=== PATIENT | female | born 1990 | race Asian ===

== ENCOUNTER 2018-09-25 11:46 | Emergency (ER) | payer OTHER ==
[2018-09-25] MEDS ORDERED: Dexamethasone IV* 4 MG/ML 1 ML (4 MG) IM ONE (14:34)
[2018-09-25] MEDS ORDERED: oxyCODONE/Acetamin 5/325 MG* TAB PO ONE (14:35)
[2018-09-25] MEDS ORDERED: Ketorolac INJ* 60 MG/2 ML VIAL IM ONE (14:35)
--- NOTE | 2018-09-25 15:37 | ED ---
Back Pain - HPI Summary HPI Summary: A 27 y/o female presents to [facility] with a chief complaint of right sided back pain today. She went to [facility] and was referred to the ED. She claims that she thinks she has a herniated disk or her sciatic nerve is swollen as touching her right side is painful. She denies fevers, chills, N/V or a Hx of kidney stones. At triage she rated her pain as an 8/10 in severity. She denies any recent falls or urinary or bowel incontinence. Her LNMP was 09/24/18. She denies the possibility of . She says that when she was 15 and 26 years old she had similar symptoms. - History of Current Complaint Chief Complaint: EDBackInjuryCecilio Stated Complaint: "BACK PAIN" PER PT Hx Obtained From: Patient Onset/Duration: Sudden Onset, Lasting Hours, Still Present Onset/Duration: Started Hours Ago, Still Present Timing: Constant Back Pain Location: Is Diffuse Severity Initially: Severe Severity Currently: Severe Pain Intensity: 8 Pain Scale Used: 0-10 Numeric Character: Unable to Describe Aggravating Symptom(s): Nothing Alleviating Symptom(s): Nothing Associated Signs And Symptoms: Negative: Fever, Bladder Incontinence, Bowel Incontinence - Allergies/Home Medications Allergies/Adverse Reactions: Allergies Allergy/AdvReac Type Severity Reaction Status Date / Time No Known Allergies Allergy Verified 09/21/18 15:02 PMH/Surg Hx/FS Hx/Imm Hx Endocrine/Hematology History: Denies: Hx Diabetes Cardiovascular History: Denies: Hx Hypertension, Hx Pacemaker/ICD History: Denies: Hx Renal Disease Sensory History: Denies: Hx Hearing Aid Psychiatric History: Denies: Hx Panic Disorder Infectious Disease History: No Infectious Disease History: Denies: Traveled Outside the [place] in Last 30 Days - Family History Known Family History: Negative: Blood Disorder - Social History Alcohol Use: Occasionally Substance Use Type: Reports: None Smoking Status (MU): Never Smoked Tobacco Review of Systems Negative: Fever, Chills Negative: Vomiting, Nausea Negative: incontinence Positive: Myalgia - back pain All Other Systems Reviewed And Are Negative: Yes Physical Exam - Summary Physical Exam Summary: GENERAL: Patient is a well-developed and nourished F who is lying comfortable in the stretcher. Patient is not in any acute respiratory distress. HEAD AND FACE: Normocephalic EYES: PERRLA, EOMI x 2. EARS: Hearing grossly intact. MOUTH: Oropharynx within normal limits. NECK: Supple, trachea is midline, no adenopathy, no JVD, no carotid bruit. CHEST: Symmetric, no tenderness at palpation LUNGS: Clear to auscultation bilaterally. No wheezing or crackles. CVS: Regular rate and rhythm, S1 and S2 present, no murmurs or gallops appreciated. ABDOMEN: Soft, non-tender. Bowel sounds are normal. No abdominal abnormal pulsations. EXTREMITIES: Straight leg raise positive on right side, tender along lumbar spine, no edema, no cyanosis or clubbing. NEURO: Alert and oriented x 3. No acute neurological deficits. Speech is normal and follows commands. SKIN: Dry and warm Triage Information Reviewed: Yes Vital Signs On Initial Exam: Initial Vitals Temp Pulse Resp BP Pulse Ox 97.2 F 98 18 124/88 98 09/25/18 11:59 09/25/18 11:59 09/25/18 11:59 09/25/18 11:59 09/25/18 11:59 Vital Signs Reviewed: Yes Diagnostics - Vital Signs Vital Signs Temp Pulse Resp BP Pulse Ox 09/25/18 15:00 18 09/25/18 11:59 97.2 F 98 18 124/88 98 - Laboratory Lab Statement: Any lab studies that have been ordered have been reviewed, and results considered in the medical decision making process. - CT lumbar spine CT Interpretation Completed By: Radiologist Summary of CT Findings: At L5-S1 there is suggestion of a right paracentral disc protrusion which. appears to abut the right descending S1 nerve root. ED physician has reviewed this imaging report. Re-Evaluation - Re-Evaluation First Eval Re-Evaluation Time: 16:10 Change: Improved Comment: Discussed results and discharge. Back Pain Course/Dx - Course Course Of Treatment: A 27 y/o female presents to [facility] with a chief complaint of right sided back pain today. The physical exam revealed Straight leg raise positive on right side, tender along lumbar spine. Lumbar spine CT impression: At L5-S1 there is suggestion of a right paracentral disc protrusion which. appears to abut the right descending S1 nerve root. In the ED course the patient was given Toradol IM, Decadron IM and Percocet PO. I discussed results with patient and she reports feeling better. She is hemodynamically stable and safe for discharge. Strict return precautions given and she will otherwise follow up with orthopedics. - Diagnoses Provider Diagnoses: Herniated disc, Sciatica Discharge - Sign-Out/Discharge Documenting (check all that apply): Patient Departure - DC Patient Received Moderate/Deep Sedation with Procedure: No - Discharge Plan Condition: Stable Disposition: HOME Prescriptions: Ibuprofen TAB* [Motrin TAB* 800 MG] 800 mg PO TID #21 tab oxyCODONE/Acetamin 5/325 MG* [Percocet 5/325 TAB*] 1 tab PO Q6H PRN #8 tab MDD 4 PRN Reason: Pain Patient Education Materials: Sciatica (ED) Referrals: Florian Chan MD [Medical Doctor] - (1-3 days) Additional Instructions: Follow up with orthopedics. RETURN TO THE EMERGENCY DEPARTMENT FOR CHANGING OR WORSENING SYMPTOMS. - Billing Disposition and Condition Condition: STABLE Disposition: Home - Attestation Statements Document Initiated by Neidaibe: Yes Documenting Scribe: Tristan Miner Provider For Whom Scribe is Documenting (Include Credential): Lu Otoole MD Scribe Attestation: Tristan Peña scribed for Lu Otoole MD on 09/26/18 at 0926. Scribe Documentation Reviewed: Yes Provider Attestation: The documentation as recorded by the Tristan dickinson accurately reflects the service I personally performed and the decisions made by Gigi preston MD Status of Scribe Document: Viewed
[2018-09-25 16:24] VITALS: BP 118/62
== END 2018-09-25 16:23 | disposition home or self-care (01) ==
LOC: ED 11:46
DX: M51.27 Other intervertebral disc displacement, lumbosacral region (principal); M54.31 Sciatica, right side
CPT/HCPCS: 72131; 96372; 99282; A9270-GY; J1100; J1885